=== PATIENT | male | born 1960 | race Caucasian/White ===

== ENCOUNTER 2024-06-29 13:27 | Outpatient (REF) | payer OTHER, SELFPAY ==
--- NOTE | ~2024-06-29 | XR_ITS ---
EXAMINATION: XR HIP, RIGHT CLINICAL INFORMATION: Right hip pain. COMPARISON: None available. TECHNIQUE: AP view of the pelvis and frog-leg lateral view of the right hip FINDINGS: Prosthetic components of the right total hip arthroplasty are appropriately positioned without significant surrounding lucency. No periprosthetic fracture. 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 No acute osseous findings. Small amount of heterotopic bone overlying the left inferior pubic ramus. Surgical clips overlie the scrotum. No acute soft tissue findings. XR/XR hip RT min 2V IMPRESSION: 1. Appropriate alignment of the right total hip arthroplasty without evidence of complications. 2. 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 Electronically signed by: Nate Sahu MD 07/23/2024 11:50 AM EDT
--- NOTE | ~2024-06-29 | XR_ITS ---
EXAMINATION: XR LUMBOSACRAL SPINE CLINICAL INFORMATION: Low back pain, unspecified. COMPARISON: None available. TECHNIQUE: AP and lateral views of the lumbar spine and lateral view of the lumbosacral junction. FINDINGS: Multilevel degenerative spondylosis in the lumbar spine with loss of vertebral disc height, endplate irregularity, endplate sclerosis, and endplate osteophytes, most pronounced at L3-L4 and L5-S1. Large, hypertrophied bridging osteophytes are present laterally on the left from L1 through L3. Vertebral body heights are normal. No fracture or spondylolisthesis. Atherosclerotic calcifications are present in the abdominal aorta. SI joints are unremarkable. XR/XR lumbar spine 2-3V IMPRESSION: Moderate multilevel degenerative spondylosis in the lumbar spine, most pronounced at L3-L4 and L5-S1. Electronically signed by: Nate Sahu MD 07/24/2024 01:11 AM EDT
== END 2024-06-29 13:28 | disposition home or self-care (01) ==
LOC: HO.HOSX 13:27
PROVIDERS: Visit Provider Orthopaedic Surgery
DX: M54.50 Low back pain, unspecified (principal); M25.551 Pain in right hip
CPT/HCPCS: 72100; 73502; 99202

== ENCOUNTER 2024-06-29 14:39 | Outpatient (AMB) | payer OTHER, SELFPAY ==
--- NOTE | 2024-06-29 15:03 | A.OFFVIS_ITS ---
Vital Signs 06/29/24 15:09 Height 5 ft 11 in Weight 190 lb BMI 26.5 Intake Visit Reasons: Low back pain, Right hip pain Intake Note: Zander a 64 year old male who presents with complaints of progressively worsening low back pain which radiates down his right leg as well as intermittent discomfort along the lateral aspect of his right hip. The patient did undergo right total hip replacement surgery approximately 8 years ago. He denies any fevers or chills. The patient states that his pain in his low back has gotten progressively worse over the last year in spite of continued non operative treatments. Has failed the last 3 months of conservative treatment including a home exercise program, topical creams, Tylenol and anti-inflammatory medicines. The patient states that his pain was so severe that he was seen in the [facility] Emergency room. He also reports intermittent weakness in his right leg. The patient states that his right hip pain is achy in nature. Allergies No Known Allergies Allergy (Verified 06/29/24 15:06) Medication List - Last Reconciled 06/29/24 by Stephane Gonsalves MD aspirin 81 mg PO DAILY metoprolol tartrate 25 mg PO BID naltrexone microspheres ER (Vivitrol) mg IM [facility] Surgical History (Updated 06/29/24 @ 15:05 by ANGELES Ford) History of right hip replacement Social History (Updated 06/29/24 @ 15:06 by ANGELES Ford) Patient Tobacco Use Status: Current everyday Tobacco user Current occupational status: unemployed Physical Exam Vital Signs: BMI result Body Mass Index 26.5 Const Other: Well-nourished well-developed very friendly male awake alert and oriented x3 in no acute distress Back/Spine/Pelvis Other: Low back examination shows right-sided paraspinal muscle tenderness, pain with range of motion, positive straight leg raise test on the right at 70 degrees, 4/5 strength with testing of his right hip flexors and knee extensors when compared to 5/5 strength on his left side Extrem Other: Right hip examination shows that the surgical incision is well healed, no erythema, minimal discomfort with range of motion, mild tenderness over his bursa Results Reviewed Results Reviewed: X-rays of the patient's right hip show a total hip arthroplasty in good position with no signs of loosening, no acute bony abnormalities X-rays of the patient's lumbar spine show moderate to severe diffuse degenerative disc disease with bridging osteophytes, no acute bony abnormalities Assessment & Plan Assessment & Plan (1) Low back pain: Code(s): M54.50 - Low back pain, unspecified Category: Medical (2) Right hip pain: Code(s): M25.551 - Pain in right hip Category: Medical Plan Mr. Szymanski presents with progressively worsening low back pain which radiates down his right leg as well as associated right leg weakness possibly due to lumbar stenosis or a disc herniation. Thus, I will send the patient for an MRI of his lumbar spine for further evaluation. I will contact him by phone once the MRI results are available. He also has intermittent discomfort along the lateral aspect of his right hip most likely due to greater trochanteric bursitis. We will hold off on a cortisone injection for now. Feel free to call me at any time should questions regarding his orthopedic management arise. I spent 21 minutes in reviewing the patient's records and imaging studies, seeing the patient and documenting in the medical record. Orders: Orders XR hip RT min 2V 06/29/24 M25.551 - Pain in right hip XR lumbar spine 2-3V 06/29/24 M54.50 - Low back pain, unspecified MR lumbar spine wo con Today M54.50 - Low back pain, unspecified Coding Level of Care Code New Pt Level 3 (02007) Diagnoses Low back pain M54.50 Right hip pain M25.551
[2024-06-29 15:09] VITALS: BMI 26.5
== END 2024-06-29 15:29 | disposition home or self-care (01) ==
PROVIDERS: PCP Nurse Practitioner Family; Visit Provider Orthopaedic Surgery
DX: M54.50 Low back pain, unspecified (principal); M25.551 Pain in right hip
CPT/HCPCS: 99203

== ENCOUNTER 2024-08-01 13:40 | Outpatient (AMB) | payer OTHER, SELFPAY ==
--- NOTE | 2024-08-01 13:48 | HO.SPINEOV ---
Intake Visit Reasons: LBP Intake Note: Mr. Szymanski is here today c/o low back pain. MRI done @ [facility]. Vascular Ultrasound Technician Required: No Allergies No Known Allergies Allergy (Verified 06/29/24 15:06) Assessment & Plan Assessment & Plan (1) Lumbar radiculopathy: Code(s): M54.16 - Radiculopathy, lumbar region Category: Medical Plan Dear Dr Gonsalves, Thank you for referring Mr Szymanski to our office today. He is a 64-year-old gentleman, recovering alcoholic who presents for evaluation of pain going down his right leg that started in early April of this year. It started rather abruptly and was intense for a few days. The very intense pain seemed to go away after a short time, but he has been left with a persistent nagging debilitating pain that shoots down into his right anterior lateral thigh, knee and into his outer calf. It primarily bothers him when he is standing and walking. If he goes to the grocery store he has to use a cart. He has stopped doing many of the activities that he enjoys because he simply can not walk anymore. He rides his bike frequently and when he is on that he is absolutely pain-free. He does not have a lot of back pain. He went to your office originally because he thought it was his hip but the x-rays were okay. He had a lumbar MRI done and this showed severe collapse of the L4 and L5 foramen. He has tried Tylenol and Motrin with limited success. He has not yet done any therapy, chiropractic, cortisone injections or acupuncture. Mostly he was just hoping it would go away. PMH: He is an alcoholic, just stopped drinking about 2 months ago. He was told that on last check his liver was okay. He did have some heart issues when he was drinking but recently saw his dough brake machine operator and was told that that issue has resolved. He has had a hip replacement on the right side. High cholesterol, hypertension. He denies ever having had a heart attack, stroke, pulmonary problems, liver disease, kidney disease, major intestinal surgery, back surgery, blood clots, bleeding disorders or cancer. Social hx: He smokes 3/4 of a pack a day and smokes pot daily. Quit drinking about 2 months ago. Medications: Metoprolol, baby aspirin, rosuvastatin and Vivitrol Allergies: None Physical exam: Awake alert oriented no acute distress, he is very slow to stand and walks with a limp. He may have a slight Trendelenburg gait. Motor exam testing of the upper and lower extremities reveals full strength. Reflexes slightly diminished at the patella bilaterally. Imaging review: There is a lumbar MRI done at the [facility] showing multilevel degenerative disc disease, most pronounced at L4-5 on the right side where there is disc collapse and right L4 foraminal stenosis which I would rate as moderate, and at L5-S1 there significant disc degeneration, more on the right side with severe L5 stenosis. Impression: 64-year-old male, presents to the office today for evaluation of pain in his right hip going down into his anterior lateral thigh, extending into his outer calf on the right side. The pain is aggravated with standing walking gets better when he sits. He does not have a large component or really any back pain to report. When he is riding his bike he is absolutely pain-free. When he is walking in the grocery store the pain is very intense left use a shopping cart just to get through it. He has severe foraminal stenosis at L5 and moderate to severe foraminal stenosis at the L4 foramen on the right. He has disc collapse at both of these levels. I think these 2 areas would explain his symptoms nicely. To this point he has had no dedicated conservative treatment. We would have to least start with physical therapy as that would be a minimum requirement before his insurance company would approve any surgery. In the and however I think he will end up getting a lumbar decompression/foraminotomy. I will review all his films with Dr. Delvalle and see this gentleman back in 6 weeks and we can re-evaluate for surgery. Thank you for allowing us to care for your patient. The total time spent with this visit with this patient was 45 minutes reviewing history, physical exam, lumbar imaging review, and implementation of treatment plan or further diagnostic testing Chung Delvalle MD,PhD [facility] Orders: Orders PT Evaluation and Treatment Today M54.50 - Low back pain, unspecified Coding Level of Care Code New Pt Level 4 (55468) Diagnoses Lumbar radiculopathy M54.16
== END 2024-08-01 14:43 | disposition home or self-care (01) ==
PROVIDERS: PCP Nurse Practitioner Family; Referring Provider Orthopaedic Surgery; Visit Provider Physician Assistant
DX: M54.16 Radiculopathy, lumbar region (principal)
CPT/HCPCS: 99204

== ENCOUNTER → 2024-08-01 13:40 | Outpatient (BNVA) | payer OTHER, SELFPAY | PROVIDERS: PCP Nurse Practitioner Family; Visit Provider Physician Assistant | DX: M54.16 Radiculopathy, lumbar region (principal) | CPT/HCPCS: 99202 ==

== ENCOUNTER 2024-09-22 13:37 | Outpatient (AMB) | payer OTHER, SELFPAY ==
--- NOTE | 2024-09-22 14:21 | HO.SPINEOV ---
Intake Visit Reasons: f/up after PT Intake Note: Mr. Szymanski is here to F/u after PT. Hog Buyer Required: No Allergies No Known Allergies Allergy (Verified 09/22/24 14:21) Assessment & Plan Assessment & Plan (1) Lumbar radiculopathy: Code(s): M54.16 - Radiculopathy, lumbar region Category: Medical Plan Mr Szymanski came back in follow-up after he completed his physical therapy. Unfortunately it only made him worse. It was more uncomfortable leaving physical therapy than it was helpful. He is at a point now where things are just escalating and he can barely walk and move around the house. He is very frustrated with his quality of life in his inability to perform even simple ADLs. He has tried the [id number] pain medications like ibuprofen and Tylenol. At this point he just looking for some relief. As outlined in my last note, the films were reviewed with Dr. Delvalle who thinks that a right L5 foraminotomy would be the surgery of choice. I explained the procedure at length to him and his sister who was here with him during the visit today. I quoted 90% success rate for relief of leg pain. Pt was given risk and benefits of surgery including but not limited to infection, hematoma , nerve injury,durotomy, weakness,bowel/bladder injury, persistent pain, as well as the option to continue with conservative treatment and patient wishes to proceed with surgery. Pt is aware they should stop their motrin, aspirin 7 days prior to surgery. All questions were answered to the best of our ability. If there is anything about this patients medical history that we have overlooked or concerns you have about us proceeding with surgery we would appreciate any input you can offer. Total amount of time spent in this visit was 20 minutes in discussion of symptoms, lumbar MRI imaging results and subsequent plan of care Chung Delvalle MD,PhD [facility] Coding Level of Care Code Est Pt Level 3 (59993) Diagnoses Lumbar radiculopathy M54.16
== END 2024-09-22 15:34 | disposition home or self-care (01) ==
PROVIDERS: PCP Nurse Practitioner Family; Visit Provider Physician Assistant
DX: M54.16 Radiculopathy, lumbar region (principal)
CPT/HCPCS: 99213

== ENCOUNTER → 2024-09-22 13:37 | Outpatient (BNVA) | payer OTHER, SELFPAY | PROVIDERS: PCP Nurse Practitioner Family; Visit Provider Physician Assistant | DX: M54.16 Radiculopathy, lumbar region (principal) | CPT/HCPCS: 99212 ==